=== PATIENT | female | born 1960 | race Caucasian/White ===

== ENCOUNTER 2017-01-02 04:04 | Emergency (ER) | payer OTHER ==
[~2017-01-02] VITALS: Ht 165.1 cm; Wt 91.0 kg
[2017-01-02 04:07] VITALS: BP 167/108; PULSE 88; TEMP 36.7; O2SAT 99; Ht 165.1 cm; Wt 91.0 kg
[2017-01-02] MEDS ORDERED: CIPROFLOXACIN HCL 0.3% OP SOLN 2.5 ML BTL OPL STA (04:18)
[2017-01-02] MEDS ORDERED: CIPR0.3S OP (04:24)
--- NOTE | 2017-01-02 04:24 | EMERGENCY ROOM VISIT NOTE ---
ED Visit Note First contact with patient: 04:11 Chief Complaint: Draining Eye History of Present Illness: Patient is a 56-year-old female who presents to the emergency department this morning for evaluation of drainage and irritation to the LEFT eye. 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 She's had upper respiratory symptoms and cough for the past week. Her upper respiratory symptoms have actually improved today and this is the best she has felt. She was at work today and was sent home secondary to this concern for conjunctivitis. She has been applying warm compresses to the area for comfort with moderate relief of symptoms. She reports some irritation of the affected eye as well as discharge and drainage. She denies any headaches, dizziness, lightheadedness, blurry vision, double vision, nausea, vomiting, or neck pain/stiffness. Medications: No current medications. Allergies: No known allergies. PMH: No pertinent past medical history. SHx: Patient is a 56-year-old female who lives with family. ROS: All pertinent positive and negative review of systems are appropriately documented in the History of Present Illness. Physical Exam: VITAL SIGNS - Vital signs and nursing notes were reviewed. GENERAL - 56-year-old female appearing her stated age. Communicates well with provider and answers questions appropriately. HEAD - Normocephalic, Atraumatic. No Dimas's Sign or Raccoon's Eyes. No depressed skull fractures palpable. EYES - PERRL with EOMI bilaterally. Sclera without noticeable foreign body or excoriations. Mild injection noted in the LEFT eye with mild purulent discharge. Without subconjunctival hemorrhage. Palpebral conjunctiva pink and moist with no injection or discharge noted. EARS - No deformities of external structures noted on gross examination bilaterally. Handle of malleus, umbo, cone of light, pars tensa/flaccid all easily visualized. NOSE - Midline and without cyanosis. Without discharge. MOUTH/OROPHARYNX - Without perioral cyanosis. Tongue midline with equal elevation of palate bilaterally. No tonsillar hypertrophy, erythema, or exudates noted. ED Course: Patient was seen and evaluated by myself. She was provided Ciloxan drops for her conjunctivitis. She'll follow-up or return for any changing or worsening symptoms. Patient discharged home in good condition In the evaluation and treatment of this patient, the following differential diagnoses were considered: Corneal Abrasion, Conjunctivitis, Eye Contusion, Globe Injury, Orbital Floor Injury (Blowout Fracture), Corneal Ulcer, Keratitis , Herpes Zoster Ophthalmic, Blepharitis, Orbital Cellulitis, Iritis, Scleritis/ Episcleritis, Uveitis, Temporal Arteritis, Subconjunctival Hemorrhage. Impression: LEFT Eye Conjunctivitis Discharge Instructions: You have been treated in the Emergency Department for Conjunctivitis of the LEFT Eye. You were prescribed Ciloxan Drops to be used as prescribed. This is an antibiotic. Stop this medication and contact a medical provider if you were to develop any significant adverse side effects including: wheezing, shortness of breath, passing out, vomiting, or a diffuse rash. Always take antibiotics as directed and COMPLETE the ENTIRE course regardless of the improvement of your symptoms. For pain control, you can use the following fqnv-ics-davyurn medicines (if >12 yo): - Regular strength (325mg/tab) Tylenol (acetaminophen) 2 tabs every 4-6 hours as needed. Do not exceed 12 tablets in a 24 hour period. Avoid taking more than 4 grams (4000 mg) of Tylenol per day. This includes any other sources of acetaminophen you may take on a regular basis. - Regular strength (200 mg/tab) Advil (ibuprofen) 1-2 tabs every 4-6 hours as needed. Do not exceed a dose of 3200 mg per day. Avoid rubbing your eyes for the next few days as this can cause irritation. Wear sunglasses when outside to help minimize your pain. You should relax in a quiet, dark room to help minimize your symptoms. You should seek evaluation of your conjunctivitis by an manager tax following your visit to the Emergency Department. The Emergency Department is not capable of treating optic issues long-term. You should call your manager tax as soon as possible to make an appointment for evaluation of your follow-up care. Return to the emergency department if you develop the following symptoms despite treatment course outlined above: blurry vision, loss of vision, fever, intractable pain, increased redness, swelling, or purulent discharge. Current/Historical Medications Scheduled Ciprofloxacin Hcl (Ophth) (Ciloxan Oph), 1 DROP OP Q4H Allergies Coded Allergies: No Known Allergies (Verified , 09/03/16) Vital Signs Date Time Temp Pulse Resp B/P Pulse Ox O2 Delivery O2 Flow Rate FiO2 01/02/17 04:07 36.7 88 20 167/108 99 Room Air Medications Administered Medications (Trade) Dose Ordered Sig/Ree Route Start Time Stop Time Status Last Admin Dose Admin Ciprofloxacin HCl (Ciprofloxacin 0.3% Op Soln) 2 drops NOW STAT OPL 01/02/17 04:18 01/02/17 04:19 DC 01/02/17 04:18 2 DROPS Departure Information Impression Primary Impression: Conjunctivitis Dispostion Home / Self-Care Condition GOOD Prescriptions Ciprofloxacin Hcl (Ophth) (CILOXAN OPH) 0.3 % Damaris 1 DROP OP Q4H for 7 Days, #1 BTL Prov: Cedric Ramirez PA-C 01/02/17 Referrals No Doctor, Assigned (PCP) Patient Instructions Conjunctivitis, My [facility] Additional Instructions You have been treated in the Emergency Department for Conjunctivitis of the LEFT Eye. You were prescribed Ciloxan Drops to be used as prescribed. This is an antibiotic. Stop this medication and contact a medical provider if you were to develop any significant adverse side effects including: wheezing, shortness of breath, passing out, vomiting, or a diffuse rash. Always take antibiotics as directed and COMPLETE the ENTIRE course regardless of the improvement of your symptoms. For pain control, you can use the following xrly-[id number]-uctwaws medicines (if >12 yo): - Regular strength (325mg/tab) Tylenol (acetaminophen) 2 tabs every 4-6 hours as needed. Do not exceed 12 tablets in a 24 hour period. Avoid taking more than 4 grams (4000 mg) of Tylenol per day. This includes any other sources of acetaminophen you may take on a regular basis. - Regular strength (200 mg/tab) Advil (ibuprofen) 1-2 tabs every 4-6 hours as needed. Do not exceed a dose of 3200 mg per day. Avoid rubbing your eyes for the next few days as this can cause irritation. Wear sunglasses when outside to help minimize your pain. You should relax in a quiet, dark room to help minimize your symptoms. You should seek evaluation of your conjunctivitis by an manager tax following your visit to the Emergency Department. The Emergency Department is not capable of treating optic issues long-term. You should call your manager tax as soon as possible to make an appointment for evaluation of your follow-up care. Return to the emergency department if you develop the following symptoms despite treatment course outlined above: blurry vision, loss of vision, fever, intractable pain, increased redness, swelling, or purulent discharge. Problem Qualifiers Primary Impression: Conjunctivitis Conjunctivitis type: acute Acute conjunctivitis type: bacterial Laterality : left Qualified Codes: H10.32 - Unspecified acute conjunctivitis, left eye
== END 2017-01-02 04:33 | disposition home or self-care (01) ==
LOC: C.EDB 04:05
DX: H10.32 Unspecified acute conjunctivitis, left eye (principal)

== ENCOUNTER 2017-04-23 11:01 | Emergency (ER) | payer OTHER ==
[~2017-04-23] VITALS: Ht 165.1 cm; Wt 77.9 kg
[2017-04-23 11:04] VITALS: TEMP 36.7; Ht 165.1 cm; Wt 77.9 kg
[2017-04-23] MEDS ORDERED: CEPH500C PO (11:38)
[2017-04-23 11:50] VITALS: BP 124/95; PULSE 95; O2SAT 96
--- NOTE | 2017-04-23 20:58 | EMERGENCY ROOM VISIT NOTE ---
History First contact with patient: 11:13 Chief Complaint: INFECTION Stated Complaint: RIGHT BREAST CELLULITIS Nursing Triage Summary: pt states she was picking berries yesterday and noticed today her right chest/breast is reddened, tender/irritated. no drainage noted at this time. pt states she has a hx of cellulitis and is worried the bug bit is causing cellulitis. no fevers NONDESTRUCTIVE TESTER bulls eye like verónica noted to right chest wall History of Present Illness The patient is a 56 year old female who presents to the Emergency Room with complaints of a possible infection above her right breast. The patient reports that she was picking blackberries yesterday afternoon. When she got back into her home, she noticed significant tenderness and irritation of the chest. She then noticed that the area was extremely red. She denies any fevers or chills. She denies recalling being stung or bitten by an insect, and denies any trauma to the region. She has had no fevers or chills. She does report a prior history of cellulitis, and presents for further recheck. She rates her discomfort a 5 out of 10. Tetanus immunization is up-to-date. Review of Systems 10 system review was performed and was negative except for pertinent positives and negatives as indicated in history of present illness Past Medical/Surgical History Medical Problems: (1) No active medical problems Family History Diabetes mellitus FH: heart disease FHx: cancer FHx: gallbladder disease Hypertension Social History Smoking Status: Current Every Day Smoker Alcohol Use: none Marital Status: single Housing Status: lives with family Occupation Status: employed Current/Historical Medications Scheduled Cephalexin Monohydrate (Keflex), 500 MG PO QID Physical Exam Vital Signs Date Time Temp Pulse Resp B/P (MAP) Pulse Ox O2 Delivery O2 Flow Rate FiO2 04/23/17 11:50 95 20 124/95 96 Room Air 04/23/17 11:04 36.7 113 18 138/96 96 Room Air Pain Rating (0-10): 0 Physical Exam CONSTITUTIONAL: Healthy and well nourished. Alert and oriented X 3 with positive affect. Patient does not appear in any acute distress. HEENT: Normocephalic, atraumatic. Pupils equal, round and reactive. NECK: Full active range of motion without discomfort. RESPIRATORY: Clear to auscultation bilaterally with no wheezing, crackles, rhonchi or stridor. CARDIOVASCULAR: Regular rate and rhythm with no murmurs, rubs or gallops. MUSCULOSKELETAL: Full range of motion of all joints without discomfort. INTEGUMENTARY: Examination of the right upper chest wall shows an area of erythema without induration, edema or raised lesions. There doesn't appear to be some peripheral clearing without any sharp and demarcated border. The area is minimally tender to palpation. NEUROLOGIC: No focal neurologic deficits noted. Medical Decision & Procedures ED Course Patient history and physical exam were performed. Nurse's notes were reviewed. Vital signs were reviewed and marginally normal. Patient was advised that the clinical appearance is more consistent with a histamine reaction, likely from an insect bite. She was encouraged to take Benadryl and intermittently apply ice to the chest wall. If the redness becomes more confluent, or significant he worsens, she was also provided a prescription for Keflex. She will follow up with her family doctor as needed for any persistent skin redness. The patient was happy with plan of care, voiced understanding of all discharge instructions, and rated her discomfort a 3 out of 10 at the conclusion of my exam. Medical Decision Blood Pressure Screening Patient's blood pressure: Normal blood pressure Impression Primary Impression: Insect bite (nonvenomous) of breast, right breast, initial enc... Departure Information Dispostion Home / Self-Care Condition GOOD Prescriptions Cephalexin Monohydrate (Keflex) 500 Mg Cap 500 MG PO QID for 7 Days, #28 CAP Prov: Yoan Johnson PA 04/23/17 Forms HOME CARE DOCUMENTATION FORM, IMPORTANT VISIT INFORMATION Patient Instructions My [facility] Additional Instructions Intermittently apply ice to the region for swelling and itch. Also suggest taking Benadryl 25-50 mg every 6-8 hours for additional relief. Try to keep cool and avoid hot showers. If redness becomes more solid or is spreading, start Keflex antibiotics as prescribed. Return to the emergency department for significant worsening redness or developing fever.
== END 2017-04-23 11:51 | disposition home or self-care (01) ==
LOC: C.EDB 11:03 → C.EDA 11:51
DX: S20.161A Insect bite (nonvenomous) of breast, right breast, initial encounter (principal); W57.XXXA Bitten or stung by nonvenomous insect and other nonvenomous arthropods, initial encounter; F17.200 Nicotine dependence, unspecified, uncomplicated; Z83.3 Family history of diabetes mellitus; Z82.49 Family history of ischemic heart disease and other diseases of the circulatory system

== ENCOUNTER → 2017-05-22 | Outpatient (CLI) | payer OTHER ==
[2017-05-22 13:39] LABS: SYNOVIAL FLUID APPEARANCE CLEAR; SYNOVIAL FLUID COLOR YELLOW; SYNOVIAL FLUID MONONUC RELAT 87.9 %; SYNOVIAL FLUID POLYNUC RELAT 12.1 %
== END | disposition home or self-care (01) ==
LOC: C.LABSPEC 12:49
PROVIDERS: ATTEND Physician Assistant
DX: M25.461 Effusion, right knee (principal)

== ENCOUNTER → 2017-05-22 | Outpatient (CLI) | payer OTHER ==
--- NOTE | 2017-05-22 10:56 | DIAGNOSTIC IMAGING REPORT ---
RIGHT KNEE 4 OR MORE CLINICAL HISTORY: RIGHT KNEE PAIN Right COMPARISON STUDY: None. FINDINGS: No fracture or dislocation. Cartilage spaces are maintained for age. Soft tissues are unremarkable. Small to moderate right knee effusion. IMPRESSION: Small to moderate right knee effusion. Electronically signed by: Bernard Graham M.D. 05/22/2017 10:55 AM Dictated Date/Time: 05/22/2017 10:53 AM
== END | disposition home or self-care (01) ==
LOC: C.RDSM 13:38
PROVIDERS: ATTEND Physician Assistant
DX: M25.561 Pain in right knee (principal)

== ENCOUNTER → 2017-06-11 | Outpatient (CLI) | payer OTHER ==
--- NOTE | 2017-06-11 07:42 | DIAGNOSTIC IMAGING REPORT ---
MRI OF THE RIGHT KNEE CLINICAL HISTORY: Right knee pain and swelling. COMPARISON STUDY: Radiographs of the right knee dated 05/22/2017. TECHNIQUE: MRI of the right knee was performed utilizing proton density, T1, and T2-weighted sequences in the axial, sagittal, coronal planes. IV contrast was not administered for this examination. FINDINGS: Menisci: There is a complex tearing with significant degenerative signal involving the posterior horn and body of the medial meniscus. The meniscus is extruded. There is likely tearing through the meniscal root. The lateral meniscus is intact. Ligaments: The anterior and posterior cruciate ligaments are intact. The medial and lateral collateral ligaments are within normal limits. Extensor mechanism: The extensor mechanism is intact. Hoffa's fat pad is normal in appearance. Articular cartilage and bone: There is mild to moderate thinning of the articular cartilage in the medial compartment. There are foci of greater than 50% fissuring along the weightbearing surface. Only mild degenerative thinning is seen in the lateral compartment. There is mild marrow edema seen in the medial tibial plateau. A small calcified fabella is incidentally noted. Joint effusion: There is a small to moderate joint effusion. Soft tissues: The musculature surrounding the knee joint is normal in bulk and signal intensity. IMPRESSION: 1. There is complex tearing and extensive degenerative signal involving the body and posterior horn of the medial meniscus. There is likely tearing through the meniscal root 2. The lateral meniscus, the cruciate ligaments, and the collateral ligaments are intact. 3. Small to moderate joint effusion. 4. There is significant marrow edema within the lateral tibial plateau, likely related to the meniscal tear. 5. Mild arthritic change as above, greatest in the medial compartment. Electronically signed by: Linden Espinal M.D. 06/11/2017 7:41 AM Dictated Date/Time: 06/11/2017 7:29 AM
== END | disposition home or self-care (01) ==
LOC: C.MRI 06:15
PROVIDERS: ATTEND Physician Assistant
DX: S83.231A Complex tear of medial meniscus, current injury, right knee, initial encounter (principal); X58.XXXA Exposure to other specified factors, initial encounter

== ENCOUNTER → 2017-06-29 | Outpatient (CLI) | payer OTHER ==
[2017-06-29 04:35] LABS: BASO % 0.3 %; BASO ABS # 0.04 K/uL (0-0.2); COMPLETE YES; EOS % 1.1 %; HEMATOCRIT 44.5 % (37-47); IG% 0.3 %; LYMPH % 20.3 %; LYMPH ABS # 2.92 K/uL (1.2-3.4); MEAN CELL VOLUME 92.7 fL (80-100); MEAN CORPUSCULAR HEMOGLOBIN 31.7 pg (25-34); MEAN CORPUSCULAR HGB CONC 34.2 g/dl (32-36); MEAN PLATELET VOLUME 9.8 fL (7.4-10.4); MONO % 5.4 %; NEUT % 72.6 %; PLATELET COUNT 218 K/uL (130-400); WHITE BLOOD COUNT 14.39 K/uL (4.8-10.8)
[2017-06-29 04:53] LABS: BLOOD UREA NITROGEN 10 mg/dl (7-18); BUN/CREATININE RATIO 13.5 (10-20); CALCIUM 9.4 mg/dl (8.5-10.1); CARBON DIOXIDE 28 mmol/L (21-32); CHLORIDE 106 mmol/L (98-107); CREATININE 0.76 mg/dl (0.60-1.20); GLUCOSE 115 mg/dl (70-99); POTASSIUM 3.8 mmol/L (3.5-5.1); SODIUM 140 mmol/L (136-145)
== END | disposition home or self-care (01) ==
LOC: C.LAB 04:10
PROVIDERS: ATTEND Physician Assistant
DX: S83.221A Peripheral tear of medial meniscus, current injury, right knee, initial encounter (principal); X58.XXXA Exposure to other specified factors, initial encounter

== ENCOUNTER → 2017-07-03 | Day surgery (SDC) | payer OTHER ==
[2017-06-26 08:23] VITALS: Ht 165.1 cm; Wt 76.4 kg
[~2017-07-03] VITALS: Ht 165.1 cm; Wt 76.4 kg
[~2017-07-03] MED LIST: ATROPINE SULFATE 0.1 MG/ML 5ML SYR IV PRN; BUPIVACAINE/EPINEPHRINE 0.5% MPF 1:200,000 30 ML VIAL ONE; CEFAZOLIN 1000MG/55 ML D5W 55 ML IV SCH; CEFAZOLIN 2000 MG/60 ML D5W 60 ML IV SCH; DEXAMETHASONE SOD INJ 4 MG/ML VIAL ONE; EpHEDrine SULFATE INJ 50 MG/ML AMP IV PRN; EpINEphrine INJ 1MG/ML AMP 1 MG/ML AMP ONE; FENTANYL CITRATE INJ 50 MCG/1 ML 2 ML VIAL ONE; FLUMAZENIL 0.1 MG/1 ML 10 ML VIAL IV PRN; HYDROmorphone INJ 1 MG/ML SYR IV PRN; KETOROLAC TROMETHAMINE 30 MG/ML VIAL ONE; LABETALOL HCL IV 5 MG/ML 20ML IV PRN; LACTATED RINGER'S 1000ML 1,000 ML IV SCH; LIDOCAINE HCL 1% 20 ML VIAL ONE; LIDOCAINE HCL 2% 2 ML VIAL (20MG/ML) ONE; METOCLOPRAMIDE HCL INJ 5 MG/ML 2 ML VIAL IV PRN; MIDAZOLAM HCL 1 MG/ML 2ML VIAL ONE; MoRPHine SULFATE 2 MG/ML CARP IV PRN; NALOXONE HCL 0.4 MG/1 ML VIAL/CARP IV PRN; ONDANSETRON INJ 2 MG/ML 2 ML VIAL IV PRN; ONDANSETRON INJ 2 MG/ML 2 ML VIAL ONE; OXYCODONE/ACETAMINOPHEN 5-325 TAB PO PRN; PROMETHAZINE HCL INJ 12.5 MG in SODIUM CHLORIDE 0.9% 50ML 50 ML IV PRN; PROPOFOL IV EMULSION 10 MG/ML 20 ML VIAL IV ONE; SODIUM CHLORIDE 0.9% 1000ML 1,000 ML IV SCH
--- NOTE | 2017-07-03 08:00 | History & Physical Bridge - SC ---
H&P Re-Evaluation Bridge Note: I have examined the patient, reviewed the History & Physical and in the interval since the performance of the History & Physical I have noted the following changes of clinical significance: No changes noted
--- NOTE | 2017-07-03 08:57 | [facility] Post Operative Brief Note ---
Immediate Operative Summary Operative Date Jul 03, 2017. Pre-Operative Diagnosis Right Knee Medial Meniscal Tear Post-Operative Diagnosis Same and Multiple Loose Bodies Procedure(s) Performed Right Knee Arthroscopy, Partial Medial Meniscectomy, Debridement, Removal of Multiple Loose Bodies, Exam Under Anesthesia Surgeon Dr. Calvert Archives Director Surgeon(s) Dr. Shawn Mitchell, Fellow Estimated Blood Loss 2 Findings same Specimens None Drains none Anesthesia general Complication(s) None Disposition Recovery Room / PACU
--- NOTE | 2017-07-03 09:53 | [facility] Post Operative Brief Note ---
Immediate Operative Summary Operative Date Jul 03, 2017. Pre-Operative Diagnosis Right Knee Medial Meniscal Tear Post-Operative Diagnosis Same and Multiple Loose Bodies, Chondromalsia Medial Femoral Condyle & Trochlea Procedure(s) Performed 1) Right Knee Arthroscopy, Chondroplasty: Trochlea & MFC, Partial Medial Meniscectomy. 2) Removal of Multiple Loose Bodies. 3) Exam Under Anesthesia. Surgeon Dr. Calvert Interior Wall Assembler Surgeon(s) Dr. Shawn Mitchell, Fellow Estimated Blood Loss 2 Findings As above. Fluids (cc crystalloids) 1000 Specimens None Drains n/a Anesthesia LMA + intra-articular injection Complication(s) None Disposition Recovery Room / PACU (Stable)
--- NOTE | 2017-07-03 09:56 | [facility] Operative Report ---
Operative Report Operative Date Jul 03, 2017. Pre-Operative Diagnosis Right Knee Medial Meniscal Tear Post-Operative Diagnosis Same and Multiple Loose Bodies, Chondromalsia Medial Femoral Condyle & Trochlea Procedure(s) Performed 1) Right Knee Arthroscopy, Chondroplasty: Trochlea & MFC, Partial Medial Meniscectomy. 2) Removal of Multiple Loose Bodies. 3) Exam Under Anesthesia. Surgeon Dr. Calvert Senior Compliance Analyst Surgeon(s) Dr. Shawn Mitchell, Fellow Estimated Blood Loss 2 Findings The right knee was examined under anesthesia. Range of motion was 0-135. Ligamentous examination exhibited: stable Matt, posterior drawer, varus and valgus stress at 0 & 30 degrees. ARTHROSCOPIC FINDINGS: There multiple small loose bodies throughout the suprapatellar pouch. 1) PATELLOFEMORAL JOINT: The articular cartilage of the Patella had some Outerbridge type I changes most notably the medial patellar facet and the Trochlea had a 5 x 5 mm area of type II changes medially. 2) GUTTERS: Multiple small loose bodies in both gutters. 3) MEDIAL COMPARTMENT: The articular cartilage of the femur had diffuse type II changes from full extension to 90 of flexion with a small area 3 x 4 mm of type III changes and the Tibia articular cartilage was intact. The medial meniscus had a complex degenerative tear at the posterior horn. 4) ACL/PCL: They were both visualized and probed to be intact. 5) LATERAL COMPARTMENT: The lateral compartment was then entered in a figure-of- four position. The femoral reticular cartilage had minimal type I changes near the notch at 90 of flexion and tibial articular cartilage was normal. The lateral meniscus had some fraying at the apex. Fluids (cc crystalloids) 1000 Specimens None Drains n/a Anesthesia LMA + intra-articular injection Complication(s) None Disposition Recovery Room / PACU (Stable) Implants n/a Indications This is a 57-year-old female who has clinical and MRI findings consistent with meniscus tear and chondromalacia. I recommended that a right knee arthroscopy be performed with meniscus debridement, possible chondroplasty versus microfracture. The patient understands the risks of surgery, which include but not limited to: bleeding, infection, re-operation, damage to nerves and arteries , continued knee pain, progression of OA, DVT, and a 2-5% risk of becoming worse after surgery. The patient understands all of these instructions and explanations, all of his questions have been satisfactorily addressed and the patient has elected to proceed. Informed consent was signed. Description of Procedure The patient was taken to the Operating Room and placed in the supine position after general anesthetic was administered. My initials and a multidisciplinary time-out were used to identify the right leg as the correct operative limb. Prior to the incision, 2 grams of intravenous Ancef was given. The right knee was then injected with 20cc of a 50:50 mix of 1% Lidocaine plain and 0.5% Bupivacaine with epinephrine in a sterile fashion using the superolateral portal. The right leg was then prepped and draped in a standard sterile fashion. The anterolateral, anteromedial, and superolateral portals were injected with the 50:50 mixture noted above, for a total of 10cc, in the standard fashion. An anterolateral arthroscopic portal was established with an 11-blade. Next, the arthroscope was introduced into the knee. A diagnostic arthroscopy commenced and both the superolateral and anteromedial portals were established under direct visualization using a spinal needle followed by an 11 blade in the standard fashion. The above findings were observed during the diagnostic arthroscopy. The anterior fat pad was debrided as they were encounter with mechanical shaver and [place]. The loose bodies were removed as they were encountered with a combination of outflow cannula and mechanical shaver. The articular cartilage damage was debrided back to stable margins as they were encountered with mechanical shaver and hand punches. The medial meniscus tear was evaluated and found to be irreparable and was debrided back to stable margin with hand punches , and mechanical shaver. The knee was copiously irrigated. The arthroscopic instruments were then removed. The portals were closed with 3-0 Prolene in a standard fashion. The wound was dressed with Xeroform gauze, sterile gauze, ABDs, sterile Webril, and a foot to thigh Yovanny bandage. The patient was then transferred to the Recovery Room in stable condition. The sponge and needle counts were correct. Post-op Instructions: The patient will be WBAT. The patient may remove the operative dressing on Post -Op Day #2 and apply Band-Aids to the wounds. The patient may shower in 72 hours and is to wear the NEREYDA for 2 weeks on the operative limb. The patient is to use the pain medicine as needed and take the ASA for 2 weeks. The patient was also given a handout for home quad strengthening and seated self-assisted ROM exercises, which they may begin tomorrow. The patient was given a prescription for PT and is scheduled for an appointment later this week. The patient is to follow up with me in 10-15 days. I attest to the content of the Intraoperative Record and any orders documented therein. Any exceptions are noted below.
--- NOTE | 2017-07-03 09:59 | Discharge Instructions-SurgCtr ---
Discharge Instructions Date of Service Jul 03, 2017. Visit Reason for Visit: Right Knee Medial Meniscal Tear Discharge Discharge Diagnosis / Problem: Status post Right knee arthroscopy Discharge Goals Goal(s): Decrease discomfort, Improve function, Increase independence Activity Recommendations Activity Limitations: per Instructions/Follow-up section May Resume Sexual Activity: when tolerated Driving or Machine Use: Not while on Narcotics and when ambulating without a limp Weightbearing Status: Right weightbearing (as tolerated) Anesthesia . Post Anesthesia Instructions: If you have had General Anesthesia or IV Sedation: * Do not drive today. * Resume driving when surgeon permits. * Do not make important decisions or sign legal documents today. * Call surgeon for: 1. Temperature elevations greater than 101 degrees F. 2. Uncontrollable pain. 3. Excessive bleeding. 4. Persistent nausea and vomiting. 5. Medication intolerance (nausea, vomiting or rash). * For nausea and vomiting use only clear liquids such as: tea, soda, bouillon until nausea subsides, then gradually increase diet as tolerated. * If you have any concerns or questions, call your surgeon's office. If physician is unavailable and it is an emergency, call 911 or go to the nearest emergency room. . Instructions / Follow-Up Instructions / Follow-Up Dr. Calvert in 10-15 days. PT in 3-4 days. Diet Recommendations Home Diet: resume previous diet Procedures Procedures Performed: 1) Right Knee Arthroscopy, Chondroplasty: Trochlea & MFC, Partial Medial Meniscectomy. 2) Removal of Multiple Loose Bodies. 3) Exam Under Anesthesia. Pending Studies Studies pending at discharge: no Work Instructions Return To Work: 1 week (Within 1-2 weeks.) Medical Emergencies . Who to Call and When: Medical Emergencies: If at any time you feel your situation is an emergency, please call 911 immediately. . Non-Emergent Contact Non-Emergency issues call your: Surgeon Call Non-Emergent contact if: temperature is above 101.5, your pain is not controlled, wound has increased drainage, wound has increased redness . . "Provider Documentation" section prepared by Stiven Calvert. .
[2017-07-03 10:43] VITALS: TEMP 36.9
--- NOTE | 2017-07-03 10:45 | Anesthesia Progress Nt - [facility] ---
Anesthesia Post Op Note Date & Time Jul 03, 2017 at 10:44 Vital Signs Pain Intensity: 5 Vital Signs Past 12 Hours Date Time Temp Pulse Resp B/P (MAP) Pulse Ox O2 Delivery O2 Flow Rate FiO2 07/03/17 10:32 79 17 07/03/17 10:32 77 17 93 07/03/17 10:31 132/79 07/03/17 10:27 82 14 07/03/17 10:27 81 14 94 07/03/17 10:26 134/81 07/03/17 10:26 37.4 88 16 134/81 94 Room Air 07/03/17 10:22 77 16 97 07/03/17 10:22 77 16 07/03/17 10:21 151/88 07/03/17 10:17 75 16 95 07/03/17 10:17 76 16 07/03/17 10:16 149/79 07/03/17 10:12 88 18 97 07/03/17 10:12 85 18 07/03/17 10:11 145/90 07/03/17 10:09 78 16 07/03/17 10:09 78 16 97 07/03/17 10:06 156/91 07/03/17 10:04 76 19 99 07/03/17 10:04 78 19 07/03/17 10:01 167/91 07/03/17 10:00 171/85 07/03/17 09:59 98 89 07/03/17 09:59 98 07/03/17 09:59 36.7 93 16 171/85 98 Diffusion Mask 6 07/03/17 06:54 36.7 93 16 128/88 (101) 96 Room Air Notes Mental Status: alert / awake / arousable, participated in evaluation Pt Amnestic to Procedure: Yes Nausea / Vomiting: adequately controlled Pain: adequately controlled Airway Patency, RR, SpO2: stable & adequate BP & HR: stable & adequate Hydration State: stable & adequate Anesthetic Complications: no major complications apparent
[2017-07-03 11:07] VITALS: BP 144/86; PULSE 75; O2SAT 95
== END | disposition home or self-care (01) ==
LOC: X.SURG 06:40
PROVIDERS: ATTEND Orthopaedic Surgery Sports Medicine
DX: M23.203 Derangement of unspecified medial meniscus due to old tear or injury, right knee (principal); I73.9 Peripheral vascular disease, unspecified; E66.9 Obesity, unspecified; Z98.890 Other specified postprocedural states; F17.200 Nicotine dependence, unspecified, uncomplicated; Z90.89 Acquired absence of other organs; Z82.49 Family history of ischemic heart disease and other diseases of the circulatory system; Z80.9 Family history of malignant neoplasm, unspecified; Z83.3 Family history of diabetes mellitus

== ENCOUNTER 2018-01-14 07:33 | Emergency (ER) | payer OTHER ==
[~2018-01-14] VITALS: Ht 165.1 cm; Wt 69.3 kg
[2018-01-14 07:37] VITALS: TEMP 36.7; Ht 165.1 cm; Wt 69.3 kg
--- NOTE | 2018-01-14 08:42 | DIAGNOSTIC IMAGING REPORT ---
R KNEE 3 VIEWS HISTORY: 57 years-old Female R knee and lower thigh pain acute right knee pain COMPARISON: Right knee MRI 06/11/2017 TECHNIQUE: 3 views of the right knee FINDINGS: Minimal tricompartmental joint space narrowing. No acute fracture or subluxation. Moderate joint effusion with mild circumferential soft tissue swelling about the knee. No opaque foreign body. Peripheral vascular disease. IMPRESSION: Moderate joint effusion and mild soft tissue swelling without acute fracture or subluxation. The above report was generated using voice recognition software. It may contain grammatical, syntax or spelling errors. Electronically signed by: Benjamín Gallegos M.D. 01/14/2018 8:41 AM Dictated Date/Time: 01/14/2018 8:36 AM
--- NOTE | 2018-01-14 09:13 | DIAGNOSTIC IMAGING REPORT ---
R VENOUS DOPP LOWER EXT UNILAT CLINICAL HISTORY: 57 years-old Female presenting with R knee and thigh pain with swelling; hx fem bypass. TECHNIQUE: Real-time grayscale and color and spectral Doppler ultrasound imaging of the veins of the right lower extremity was performed. Compression and augmentation were also utilized. COMPARISON: None. FINDINGS: Right: Common femoral vein: Patent. Greater saphenous vein: Patent. Deep femoral vein: Patent. Femoral vein: Patent. Popliteal vein: Patent. Calf veins: Patent. Other: Partially cystic partially solid complex collection in the anterior knee measuring 6.9 x 2.2 x 5.9 cm. No internal vascularity or peripheral hyperemia on color Doppler. IMPRESSION: 1. No evidence of deep venous thrombosis. 2. Complex fluid collection in the anterior knee likely represents a knee joint effusion with synovitis. Electronically signed by: Aamir Renteria M.D. 01/14/2018 9:12 AM Dictated Date/Time: 01/14/2018 9:11 AM
[2018-01-14 09:48] VITALS: BP 134/76; PULSE 67; O2SAT 97
--- NOTE | 2018-01-14 16:55 | EMERGENCY ROOM VISIT NOTE ---
ED Visit Note First contact with patient: 07:37 Chief Complaint: Right knee and lower thigh pain. History of Present Illness: Ms. Ríos is a 57-year-old white female who ambulates into the ED with the use of a cane complaining of pain and swelling over the anterior right knee and right lower thigh. Historically patient reports that she has had a previous arthroplasty for a meniscus repair that was unsuccessful of the right knee. Patient reports she notes that she has some swelling over the area just above her right knee 2 days ago after waking from sleep. Since that time the swelling has been constant and gradually increased in intensity. Associated with her swelling she has been having a heaviness/achiness sensation in that area and also the knee. She rates her discomfort 6/10. Her pain is nonradiating. Her pain worsens with knee flexion and ambulation. She has not identified any alleviating factors related to the pain. She has used heat, ice and Aleve without relief Associated with her pain she is noted moderate swelling just superior to the knee and in the lower thigh. She denies any recent direct or repetitive trauma, lumbar back pain, hip pain, proximal thigh pain, lower leg pain, ankle pain, leg weakness/numbness/tingling , skin eruptions, skin color changes, fevers, chills, sweats. Review of Systems: As noted above in history of present illness. 8 body systems were reviewed and found to be negative as noted above. Past Medical History: As previously noted, bilateral femoropopliteal surgeries, peripheral vascular disease. Current Medications: Patient denies. Allergies to Medications: Patient denies. Social History: Patient is currently employed; she feels safe in her home environment; she admits to tobacco use and denies alcohol use. Physical Examination: Vital Signs: Date Time Temp Pulse Resp B/P (MAP) Pulse Ox O2 Delivery O2 Flow Rate FiO2 01/14/18 09:48 67 16 134/76 97 Room Air 01/14/18 07:37 36.7 89 17 160/97 99 Room Air GENERAL: 57-year-old female in mild distress due to pain, nontoxic-appearing, afebrile and hemodynamically stable. NEUROLOGICAL: Awake, alert and oriented to person, place and time. Answering questions appropriately and following commands. Good hand eye coordination. No focal motor or sensory deficits. SKIN: Warm, dry and pink. Right Knee/Lower Thigh: Patient has mild anterior knee and lower thigh swelling without erythema or lymphangitis. HEENT: Atraumatic and normocephalic. BACK: No tenderness over the bony spine. No CVA tenderness. THORAX: Lungs sounds are clear to auscultation and equal bilaterally with symmetrical chest wall. ABDOMEN: Flat, soft and nontender. Positive bowel sounds in all quadrants. No guarding, rigidity or organomegaly. RIGHT LOWER EXTREMITY: Soft tissue swelling is noted above. No gross bony deformities. No shortening or malrotation. No tenderness over the hip, lower leg, ankle or foot. Minimal tenderness over her area of swelling. The skin is mildly warm to palpation when compared bilaterally but there is no erythema. No tenderness over the joint line or the bony structures of the knee. No laxity of the collateral or cruciate ligaments. Thong's test is negative. Decreased range of motion due to pain. 4/5 muscle strength in all movements of the hip, knee and ankle against resistance. Throughout the lower leg the skin was warm and pink and capillary refill is brisk. She is able to distinguish light sensations to all dermatomes of the leg. No palpable calf tenderness or cords. ED Course: Patient is assessed as noted above. Patient's medication list was reviewed. Patient was offered pain medication and refused. Right Knee X-Rays: Was read by myself and the radiologist showing a moderate joint effusion with mild soft tissue swelling without bony fracture or subluxations. Right Lower Extremity Venous Doppler Ultrasound: Was reviewed by myself and read by the radiologist with no evidence of deep vein thrombus. Complex fluid collection in the anterior knee likely representing a joint effusion with synovitis. Patient's case was reviewed with Dr. Blair; we agreed on diagnostic approach , treatment, disposition and plan. Patient was placed in a knee immobilizer. Patient was offered crutches but reports that she had a pair at home. Clinical Impression: Right anterior knee pain. Right lower thigh swelling. Decision-Making: Initially my differential diagnosis I considered joint effusion , ligamentous sprain, ligamentous strain, tendinitis, bursitis, patellar fracture and other causes. Disposition: Patient discharged home in stable condition; prior to departure she was reassessed and subjectively reported she was feeling the same. Plan: Patient was encouraged alternate ibuprofen and acetaminophen every 3 hours as needed for pain. Patient was encouraged elevate at rest. Other comfort measures including ice, knee immobilizer nonweightbearing crutches were discussed with the patient. Patient was signed off work for 2 days. Patient was encouraged to follow-up with her psych sales specialist for definitive care and treatment. Patient was encouraged return the ED for worsening pain, worsening swelling, skin redness, fevers, leg weakness/numbness/tingling or any new/concerning symptoms.
== END 2018-01-14 09:59 | disposition home or self-care (01) ==
LOC: C.EDB 07:34
DX: M25.561 Pain in right knee (principal); M79.651 Pain in right thigh; M25.461 Effusion, right knee; F17.200 Nicotine dependence, unspecified, uncomplicated

== ENCOUNTER 2018-01-18 22:17 | Emergency (ER) | payer OTHER ==
[~2018-01-18] VITALS: Ht 165.1 cm; Wt 73.3 kg
[2018-01-18 22:19] VITALS: TEMP 36.8; Ht 165.1 cm; Wt 73.3 kg
[2018-01-18] MEDS ORDERED: LIDOCAINE/EPINEPHRINE 1% 20 ML VIAL ONE (22:43)
[2018-01-18] MEDS ORDERED: LIDOCAINE HCL 1% 20 ML VIAL ONE (22:44)
[2018-01-18 22:53] LABS: BASO % 0.2 %; BASO ABS # 0.03 K/uL (0-0.2); EOS % 0.3 %; EOS ABS # 0.04 K/uL (0-0.5); HEMATOCRIT 44.3 % (37-47); HEMOGLOBIN 15.8 g/dL (12.0-16.0); IG# 0.05 K/uL (0.00-0.02); LYMPH ABS # 2.24 K/uL (1.2-3.4); MEAN CELL VOLUME 92.1 fL (80-100); MEAN CORPUSCULAR HEMOGLOBIN 32.8 pg (25-34); MEAN CORPUSCULAR HGB CONC 35.7 g/dl (32-36); MEAN PLATELET VOLUME 9.9 fL (7.4-10.4); MONO % 9.1 %; PLATELET COUNT 200 K/uL (130-400); RED CELL DISTRIBUTION WIDTH CV 12.9 % (11.5-14.5); RED CELL DISTRIBUTION WIDTH SD 43.2 fL (36.4-46.3); WHITE BLOOD COUNT 13.16 K/uL (4.8-10.8)
--- NOTE | 2018-01-18 23:03 | EMERGENCY ROOM VISIT NOTE ---
ED Visit Note First contact with patient: 22:23 This Patient was discussed with the physician autopsy assistant, Lupis Mccabe PA-C. The pertinent historical and physical exam findings were confirmed. I agree with the studies ordered and with the interpretations of these studies. I agree with the disposition and care plan.
[2018-01-18 23:16] LABS: CALCIUM 9.2 mg/dl (8.5-10.1); CREATININE 0.77 mg/dl (0.60-1.20); POTASSIUM 3.6 mmol/L (3.5-5.1); URIC ACID 4.1 mg/dl (2.6-7.2)
--- NOTE | 2018-01-18 23:29 | EMERGENCY ROOM VISIT NOTE ---
History First contact with patient: 22:23 Chief Complaint: KNEEPAIN Stated Complaint: RIGHT KNEE PAIN/SWELLING History of Present Illness The patient is a 57 year old female who presents to the Emergency Room with complaints of right knee pain and swelling. The patient reports that she first developed swelling in her right knee 1 week ago after waking up. There was no injury to the knee. She was seen here 4 days ago and had x-ray and ultrasound which showed a joint effusion. She notes that the swelling has worsened since then. She has been wearing the knee immobilizer as directed but states it is more painful to do so. She developed a fever today up to 100F. She rates her discomfort an 8/10 and states it is aching. She has seen Dr. Calvert in the past for issues with the right knee and had an arthroscopy and meniscus repair in June 2017. She reports difficulty moving the knee due to the discomfort. She denies pain in her other joints. She denies history of gout or inflammatory arthropathy. Review of Systems A complete 10 point review of systems was reviewed with the patient with pertinent positives and negatives as per history of present illness. All else were negative. Past Medical/Surgical History Medical Problems: (1) No active medical problems Family History Diabetes mellitus FH: heart disease FHx: cancer FHx: gallbladder disease Hypertension Social History Smoking Status: Current Every Day Smoker Alcohol Use: none Marital Status: single Housing Status: lives with family Occupation Status: employed Current/Historical Medications No Active Prescriptions or Reported Meds Physical Exam Vital Signs Date Time Temp Pulse Resp B/P (MAP) Pulse Ox O2 Delivery O2 Flow Rate FiO2 01/19/18 02:00 94 18 159/87 96 01/19/18 00:03 96 18 159/87 96 Room Air 01/18/18 22:19 36.8 119 20 150/90 97 Room Air Physical Exam VITALS: Vitals are noted on the nurse's note and reviewed by myself. Vital signs stable. GENERAL: This is a 57-year-old female, in no acute distress, nondiaphoretic, well-developed well-nourished. SKIN: The skin was without rashes. EYES: Pupils equal round and reactive to light and accommodation. MOUTH: Mucous membranes moist. HEART: Regular rate and rhythm without murmurs gallops or rubs. LUNGS: Clear to auscultation bilaterally without wheezes, rales or rhonchi. MUSCULOSKELETAL: There is an obvious large effusion to the right knee. Skin is slightly warm to touch. There is no erythema. Decreased range of motion secondary to patient discomfort. NEURO: Patient was alert and oriented to person place and time. Normal sensation to light and sharp touch. Medical Decision & Procedures Laboratory Results 01/18/18 22:40 Red Blood Count 4.81, Mean Corpuscular Volume 92.1, Mean Corpuscular Hemoglobin 32.8, Mean Corpuscular Hemoglobin Concent 35.7, Mean Platelet Volume 9.9, Neutrophils (%) (Auto) 73.0, Lymphocytes (%) (Auto) 17.0, Monocytes (%) (Auto) 9.1, Eosinophils (%) (Auto) 0.3, Basophils (%) (Auto) 0.2, Neutrophils # (Auto) 9.60, Lymphocytes # (Auto) 2.24, Monocytes # (Auto) 1.20, Eosinophils # (Auto) 0.04, Basophils # (Auto) 0.03 01/18/18 22:40 Test 01/18/18 22:40 01/18/18 22:57 White Blood Count 13.16 K/uL (4.8-10.8) Red Blood Count 4.81 M/uL (4.2-5.4) Hemoglobin 15.8 g/dL (12.0-16.0) Hematocrit 44.3 % (37-47) Mean Corpuscular Volume 92.1 fL (80-100) Mean Corpuscular Hemoglobin 32.8 pg (25-34) Mean Corpuscular Hemoglobin Concent 35.7 g/dl (32-36) Platelet Count 200 K/uL (130-400) Mean Platelet Volume 9.9 fL (7.4-10.4) Neutrophils (%) (Auto) 73.0 % Lymphocytes (%) (Auto) 17.0 % Monocytes (%) (Auto) 9.1 % Eosinophils (%) (Auto) 0.3 % Basophils (%) (Auto) 0.2 % Neutrophils # (Auto) 9.60 K/uL (1.4-6.5) Lymphocytes # (Auto) 2.24 K/uL (1.2-3.4) Monocytes # (Auto) 1.20 K/uL (0.11-0.59) Eosinophils # (Auto) 0.04 K/uL (0-0.5) Basophils # (Auto) 0.03 K/uL (0-0.2) RDW Standard Deviation 43.2 fL (36.4-46.3) RDW Coefficient of Variation 12.9 % (11.5-14.5) Immature Granulocyte % (Auto) 0.4 % Immature Granulocyte # (Auto) 0.05 K/uL (0.00-0.02) Erythrocyte Sedimentation Rate 42 mm/hr (0-21) Anion Gap 5.0 mmol/L (3-11) Est Creatinine Clear Calc Drug Dose 79.9 ml/min Estimated GFR () 98.6 Estimated GFR (Non- 85.1 BUN/Creatinine Ratio 9.3 (10-20) Uric Acid 4.1 mg/dl (2.6-7.2) Calcium Level 9.2 mg/dl (8.5-10.1) C-Reactive Protein 7.51 mg/dl (0-0.29) Lyme Disease IgG Antibody POS (NEG) Synovial Fluid Source RT KNEE Synovial Fluid Color YELLOW Synovial Fluid Appearance CLOUDY Synovial Fluid WBC 61755 /uL (0-200) Synovial Fluid RBC < 3000 /uL Synovial Fluid Polynuclear WBCs % 97.2 % Synovial Fluid Mononuclear WBCs % 2.8 % Medications Administered Medications (Trade) Dose Ordered Sig/Ree Route Start Time Stop Time Status Last Admin Dose Admin Ceftriaxone Sodium 2000 mg/ Dextrose 70 ml @ 100 mls/hr NOW STAT IV 01/19/18 00:58 01/19/18 01:39 DC 01/19/18 01:15 100 MLS/HR Doxycycline Hyclate (Vibramycin Cap) 100 mg NOW STAT PO 01/19/18 00:58 01/19/18 01:01 DC 01/19/18 01:05 100 MG Ketorolac Tromethamine (Toradol Inj) 30 mg NOW STAT IV 01/19/18 00:58 01/19/18 01:01 DC 01/19/18 01:07 30 MG Procedure Right Knee Arthrocentesis: Indication: Right knee effusion Benefits and risks of performing the procedure discussed, benefits of performing procedure outweigh risks of NOT performing procedure at this time. Verbal consent obtained. Time out was performed. Area was prepared in the usual fashion with betadine. 1% buffered lidocaine was performed to achieve local anesthesia. 18 gauge needle was then introduced into the joint space and approximately 50 cc of cloudy fluid was removed from the joint space. Synovial fluid was sent to the lab for analysis. The patient tolerated the procedure well. ED Course The patient was evaluated as above. Labs were drawn and IV access was obtained. Right knee arthrocentesis was performed by myself. Case was discussed with Dr. Blanco of [facility]. Discharge instructions were reviewed with the patient. The patient verbalized understanding of my assessment and treatment plan and was discharged home in good condition. Medical Decision Differential diagnosis includes septic arthritis, Lyme arthritis, rheumatoid arthritis, gouty arthritis, ligamentous injury, among others. The patient is a 57-year-old female who presents today complaining of right knee pain and swelling. Previous records were reviewed; patient was seen here 2 days ago and had x-ray and ultrasound which showed moderate knee joint effusion with no other acute findings. Patient does report subjective fevers today although no fever noted on initial presentation. Labs revealed leukocytosis of 13,000, elevated ESR of 42 and CRP of 7.5. Both Lyme IgM and IgG were found to be positive. Knee joint aspiration was performed and 50 cc of synovial fluid were drained from the knee. Synovial fluid was positive for 78,000 white blood cells. Gram stain showed no organisms. Crystals and culture were pending. I discussed this case with Dr. Blanco of orthopedics, who felt that the patient could either be admitted overnight or could be safely discharged home with close follow-up in the morning to recheck the culture results. I discussed these options with the patient, who strongly preferred to be discharged home if possible. She was given 2 g Rocephin IV and 100 mg doxycycline to cover for both knee joint infection as well as Lyme disease. She was given 30 mg Toradol IV. She will call the office first thing in the morning to schedule a follow-up appointment. They requested that she had nothing to eat or drink until she is seen there and the patient was informed of this. The patient was independently evaluated by Dr. Hoyos, ED attending physician, who agreed with my assessment and treatment plan. Based on the patient's presentation and work up, I feel the patient is stable for outpatient treatment. The patient was educated to return to the emergency department for any worsening of their current condition or new/concerning symptoms. She will follow up with orthopedics in the morning. Medication Reconcilliation Current Medication List: was personally reviewed by me Blood Pressure Screening Patient's blood pressure: Elevated blood pressure Blood pressure disposition: Elevated BP felt to be situational Impression Primary Impression: Effusion of right knee Departure Information Dispostion Home / Self-Care Condition GOOD Prescriptions No Active Prescriptions or Reported Meds Referrals Tanner Felipe M.D. (PCP) Aamir Blanco M.D. Patient Instructions My [facility] Additional Instructions Contact [facility] first thing in the morning to schedule follow-up appointment as soon as possible. For pain control, you can use the following [id number] medicines (if >12 yo): - Regular strength (325mg/tab) Tylenol (acetaminophen) 2 tabs every 4-6 hours as needed. Do not exceed 12 tablets in a 24 hour period. Avoid taking more than 4 grams (4000 mg) of Tylenol per day. This includes any other sources of acetaminophen you may take on a regular basis. - Regular strength (200 mg/tab) Advil (ibuprofen) 3-4 tabs every 6 hours as needed. Do not exceed a dose of 3200 mg per day. Do not have anything to eat or drink except for medications with small sips of water until seen by orthopedics in the morning. Return to the ED with any worsening or new/concerning symptoms.
[2018-01-19] MEDS ORDERED: DOXYCYCLINE HYCLATE 100 MG CAP PO STA (00:58)
[2018-01-19] MEDS ORDERED: KETOROLAC TROMETHAMINE 30 MG/ML VIAL IV STA (00:58)
[2018-01-19] MEDS ORDERED: CEFTRIAXONE SOD INJ 2,000 MG in DEXTROSE 5% 50ML 50 ML IV STA (00:58)
[2018-01-19 02:00] VITALS: BP 159/87; PULSE 94; O2SAT 96
== END 2018-01-19 02:12 | disposition home or self-care (01) ==
LOC: C.EDB 22:17
DX: M25.561 Pain in right knee (principal); M25.461 Effusion, right knee; Z83.3 Family history of diabetes mellitus; Z80.9 Family history of malignant neoplasm, unspecified; Z82.49 Family history of ischemic heart disease and other diseases of the circulatory system; F17.210 Nicotine dependence, cigarettes, uncomplicated; M10.9 Gout, unspecified